=== PATIENT | male | born 1975 | race Caucasian/White ===

== ENCOUNTER 2020-07-25 14:08 | Emergency (ER) | payer MEDICAID ==
--- NOTE | 2020-07-25 14:34 | XRAY Report ---
PROCEDURE: Chest 2 View X-Ray INDICATIONS: cough TECHNIQUE: 2 view(s) of the chest. COMPARISON: None. FINDINGS: Surgical changes and devices: None. Lungs and pleura: No pleural effusions or pneumothorax. Lungs are clear. Mediastinum: Mediastinal contours are normal. Heart size is normal. Bones and chest wall: No suspicious bony abnormalities. Soft tissues appear unremarkable. IMPRESSION: No acute cardiopulmonary abnormality. Reviewed by: Connor Hernandez MD on 07/25/2020 1:32 PM [facility] Approved by: Connor Hernandez MD on 07/25/2020 1:32 PM [facility] Station ID: [id number]
[2020-07-25] MEDS ORDERED: ALBUTEROL 1 PUFF INH STA (15:10)
[2020-07-25] MEDS ORDERED: ASPIRIN 325 MG TABLET PO STA (15:13)
--- NOTE | 2020-07-25 15:24 | ED Physician Documentation ---
History of Present Illness - Stated complaint Stated Complaint: SOA/COUGH - Chief complaint Chief Complaint: Resp - History obtained from History obtained from: Patient - Additonal information Additional information: 44-year-old male presents the emergency department for concerns that he may have pneumonia. He reports that for the last 2 weeks he has had a productive cough with shortness of air. He is a tobacco user. He reports that twice between June 04 and July 05 he was treated for pneumonia. He was staying as an inpatient and [place] for substance abuse, cocaine and methamphetamine use. He was discharged on 05 July. While in rehab he did develop diarrhea and was diagnosed with C. difficile. He is currently completing a 21-day course of oral vancomycin and reports that the diarrhea has fully resolved. He states that unless he takes Mucinex the cough is persistent. He has subjective fevers. Denies chest pain. No abdominal pain nausea or vomiting. He is unsure the name of the antibiotics he took between May and June. He reports a history of previous traumatic brain injury and poor memory recall. Past medical history: Traumatic brain injury, migraines, hepatitis C, insomnia, substance abuse Social: Active tobaccoism. History of methamphetamine and cocaine abuse. No use for 6 weeks Meds: Imitrex, trazodone, propranolol, oral vancomycin Review of Systems Constitutional: reports: Myalgias Eyes: reports: Reviewed and negative Ears: reports: Reviewed and negative Nose: reports: Congestion Cardiac: reports: Chest pain / pressure Respiratory: reports: Dyspnea, Cough. denies: Hemoptysis, Wheezing GI: reports: Diarrhea (resolving (recent c-diff dx)) : reports: Reviewed and negative Skin: reports: Reviewed and negative Musculoskeletal: reports: Reviewed and negative PD PAST MEDICAL HISTORY - Present Medications Home Medications: Ambulatory Orders Medication Instructions Recorded Confirmed Albuterol Sulf [Ventolin Hfa 1 - 2 puffs INH Q4HR PRN #1 inhaler 07/25/20 Inhaler] Guaifenesin/Pseudoephedrne HCl 1 each PO BID #20 tab.er.12h 07/25/20 [Mucinex D ER 1,200-120 mg Tab] Propranolol HCl 10 mg PO DAILY 07/25/20 07/25/20 SUMAtriptan [Imitrex] 0 mg DAILY 07/25/20 07/25/20 Vancomycin [Vancocin] 0 mg DAILY 07/25/20 07/25/20 traZODone [Desyrel] 50 mg QPM 07/25/20 07/25/20 - Allergies Allergies/Adverse Reactions: Allergies Allergy/AdvReac Type Severity Reaction Status Date / Time benztropine [From Cogentin] Allergy Anxiety Verified 07/25/20 14:13 PD ED PE EXPANDED - General General: Alert, No acute distress, Well developed/nourished - Neck Neck: Supple w/out meningeal sx, No tenderness. No: Adenopathy - Cardiac Cardiac: Regular Rate, Regular Rhythm, Radial strong equal, Pedal strong equal, Cap refill < 2 sec. No: Murmur Present - Respiratory Respiratory: Clear to ausultation cody. No: Distress, Labored - Abdomen Abdomen: Normal Bowel sounds. No: Tender to palpation - Extremities Extremities: Normal. No: Deformity, Tenderness - Neuro Neuro: Alert and Oriented X 3, CNII-XII intact - GCS Eye Opening: Spontaneous Motor: Obeys Commands Verbal: Oriented Total: 15 Results - Vitals Vitals: Vital Signs - 24 hr 07/25/20 07/25/20 14:13 15:45 Temperature 36.6 C Heart Rate 82 75 Respiratory 16 22 Rate Blood Pressure 134/79 H O2 Saturation 97 Oxygen O2 Source Room air - Labs Labs: Laboratory Tests 07/25/20 07/25/20 15:36 15:36 WBC 6.7 RBC 4.50 L Hgb 12.5 L Hct 39.3 L MCV 87.3 MCH 27.8 MCHC 31.8 L RDW 13.4 Plt Count 206 MPV 11.3 Neut # (Auto) 4.1 Lymph # (Auto) 1.7 [place] # (Auto) 0.5 Eos # (Auto) 0.2 Baso # (Auto) 0.0 Absolute Nucleated RBC 0.00 Nucleated RBC % 0.0 Sodium 141 Potassium 3.8 Chloride 102 Carbon Dioxide 27 Anion Gap 12.0 BUN 16 Creatinine 0.8 Estimated GFR (MDRD) 105 Glucose 88 Calcium 9.1 Total Bilirubin 0.5 AST 20 ALT 21 Alkaline Phosphatase 82 Total Protein 7.8 Albumin 3.9 Globulin 3.9 Albumin/Globulin Ratio 1.0 Lipase 30 - Rads (name of study) CXR Radiology: Final report received (No acute cardiopulmonary abnormality) PD MEDICAL DECISION MAKING - ED course Complexity details: reviewed results, re-evaluated patient, considered differential, d/w patient ED course: 44-year-old male who has a history of hypertension and substance abuse recently out of treatment and recent diagnosis of pneumonia 2 months ago presents to the emergency department with 2 weeks of cough and congestion. He has subjective fevers. He was treated for pneumonia just as he was going into rehab for methamphetamine abuse. While in rehab he unfortunately developed C. difficile infection and is completing a 21-day course of oral vancomycin. Here on presentation he appears very well and has unremarkable cardiopulmonary excursion. His saturations on room air are 98%. Two-view chest x-ray shows no acute focal opacities. His blood count shows no leukocytosis. He was seen by respiratory therapy and did have albuterol MDI which patient reports improved his cough. COVID 19 screening is pending Given lack of fevers leukocytosis or findings on chest x-ray I will defer antibiotics at this time. I have encouraged him to fill the prescription for the albuterol MDI. I will also write a prescription for Mucinex. I have also encouraged him to establish with a primary care provider [place] as he will be staying here for the duration. Emergent and worrisome return precautions discussed Departure - Departure Disposition: 01 Home, Self Care Clinical Impression: Cough Condition: Stable Record reviewed to determine appropriate education?: Yes Instructions: ED Bronchitis Asthmatic Ch Follow-Up: [facility] [Provider Group] Prescriptions: Albuterol Sulf [Ventolin Hfa Inhaler] 1 - 2 puffs INH Q4HR PRN #1 inhaler PRN Reason: Shortness Of Air/Wheezing Guaifenesin/Pseudoephedrne HCl [Mucinex D ER 1,200-120 mg Tab] 1 each PO BID #20 tab.er.12h Comments: Donavan hansen were seen today in the emergency department for cough. As we discussed the chest x-ray does not show any findings of pneumonia. Your vital signs here are normal. Your blood count does not show an elevated white count. At this time I do not feel you would benefit from any further doses of antibiotics. It is likely that you have a virus causing your cough and congestion. I have written a prescription for the Mucinex as well as some albuterol. If your cough is not improving after 7 to 10 days, you have fevers higher than 102, you are short of breath or develop chest pain please return to the ER for a second look. It is important that you schedule [place] I have given you a reference to [facility]. In the long-term you can be evaluated and treated for your hepatitis C. You have a Covid test pending. You need to self quarantine until the result is done and negative. Do not leave your house. Do not get near anybody. The results should be done in 48 to 72 hours. We will call with a positive result, the fastest way to get a negative result for confirmation though is to go to the hospital website at [email or web address], click on the my [facility] tab and sign up for the patient portal. If any friends or family get sick and would like to have a Covid test done, but do not have signs or symptoms that would necessitate being hospitalized, we encourage testing through our coronavirus swabbing station, call [phone] to schedule an appointment.
[2020-07-25 15:53] LABS: BASOPHILS % (AUTO) 0.6 %; EOSINOPHILS # (AUTO) 0.2 10^3/uL (0.0-0.7); EOSINOPHILS % (AUTO) 3.6 %; HGB - HEMOGLOBIN 12.5 g/dL (14.0-18.0); LYMPHOCYTES # (AUTO) 1.7 10^3/uL (1.5-3.5); LYMPHOCYTES % (AUTO) 25.9 %; MEAN CORPUSCULAR HEMOGLOBIN 27.8 pg (27.0-31.0); MEAN CORPUSCULAR HGB CONC 31.8 g/dL (32.0-36.0); MEAN CORPUSCULAR VOLUME 87.3 fL (80.0-94.0); MEAN PLATELET VOLUME 11.3 fL (7.4-11.4); MONOCYTES # (AUTO) 0.5 10^3/uL (0.0-1.0); NEUTROPHILS # (AUTO) 4.1 10^3/uL (1.5-6.6); NEUTROPHILS % (AUTO) 61.6 %; PLT - PLATELET COUNT 206 10^3/uL (130-450); RED CELL DISTRIBUTION WIDTH 13.4 % (12.0-15.0); WHITE BLOOD COUNT 6.7 x10^3/uL (4.8-10.8)
[2020-07-25 16:10] LABS: ALBUMIN 3.9 g/dL (3.2-5.5); BILIRUBIN,TOTAL 0.5 mg/dL (0.2-1.0); CALCIUM 9.1 mg/dL (8.5-10.3); CREATININE 0.8 mg/dL (0.6-1.2); TOTAL PROTEIN 7.8 g/dL (6.7-8.2)
[2020-07-25 16:39] VITALS: BP 160/76
== END 2020-07-25 16:47 | disposition home or self-care (01) ==
LOC: ED 14:08
DX: R05 Cough (principal); R09.81 Nasal congestion; Z20.822 Contact with and (suspected) exposure to COVID-19; Z87.01 Personal history of pneumonia (recurrent); F17.200 Nicotine dependence, unspecified, uncomplicated; B19.20 Unspecified viral hepatitis C without hepatic coma; I10 Essential (primary) hypertension
CPT/HCPCS: 80053; 83690; 84484; 85025; 94640; 94664; 99284

== ENCOUNTER 2020-11-20 17:26 | Emergency (ER) | payer MEDICAID ==
[2020-11-20 17:32] VITALS: BP 123/81
--- NOTE | 2020-11-20 18:03 | ED Physician Documentation ---
PD HPI UPPER EXT INJURY - Stated complaint Stated Complaint: FINGER LAC - Chief complaint Chief Complaint: Laceration - History obtained from History obtained from: Patient - History of Present Illness Location: Left, Finger (index) Type of injury: Laceration Where injury occurred: Home Timing - onset: How many minutes ago (45) Pain level max: 2 Pain level now: 1 Improved by: Rest Worsened by: Moving, Palpating Contributing factors: No: Anticoagulated, Prior ortho surgery - Additonal information Additional information: Patient is a 45-year-old male who presents to the emergency department with a left index finger laceration. This occurred at home. About 45 minutes prior to arrival. Tetanus is up-to-date. Patient is right-handed. Review of Systems Constitutional: denies: Fever, Chills Respiratory: denies: Cough Skin: denies: Rash Neurologic: denies: Headache PD PAST MEDICAL HISTORY - Past Medical History Respiratory: Pneumonia Neuro: Head injury, Migraines, Seizure disorder GI: Other - Past Surgical History Past Surgical History: Yes General: Bowel surgery, Other Ortho: Arthroscopic surgery - Present Medications Home Medications: Ambulatory Orders Medication Instructions Recorded Confirmed Propranolol HCl 40 mg PO BID 07/25/20 11/20/20 SUMAtriptan [Imitrex] 0 mg DAILY 07/25/20 07/25/20 traZODone [Desyrel] 100 mg PO QPM 07/25/20 11/20/20 - Allergies Allergies/Adverse Reactions: Allergies Allergy/AdvReac Type Severity Reaction Status Date / Time benztropine [From Cogentin] Allergy Anxiety Verified 11/20/20 17:29 - Social History Does the pt smoke?: Yes Smoking Status: Current every day smoker Does the pt drink ETOH?: No PD ED PE NORMAL - Vitals Vital signs reviewed: Yes - General General: Alert and oriented X 3, No acute distress - Derm Derm: Warm and dry - Neuro Neuro: Alert and oriented X 3 - Psych Psych: Normal mood, Normal affect PD ED PE EXPANDED - Extremities SHAHRZAD UE/Hands Visual: 1 - laceration (0.2cm superficial flap laceration. NVI. No bleeding. no nail injury) Results - Vitals Vitals: Vital Signs - 24 hr 11/20/20 17:30 Temperature 36.7 C Heart Rate 86 Respiratory 18 Rate Blood Pressure 123/81 H O2 Saturation 98 Oxygen O2 Source Room air Procedures - Laceration (location) L index finger Length in cm: 0.2 Wound type: Curved, Flap, Superficial Neurovascular status: Sensory intact, Motor intact, Vascular intact Wound preparation: Chlorhexadine, Irrigated copiously NS Skin layer closure: Dermabond Other: Patient tolerated well, No complications, Neurovascular intact PD MEDICAL DECISION MAKING - ED course Complexity details: considered differential, d/w patient ED course: Patient with a small laceration to the left index finger. No active bleeding. Small flap. Dermabond was used to readhere it to the finger. Tetanus up-to- date. Patient counseled regarding signs and symptoms for which I believe and urgent re-evaluation would be necessary. Patient with good understanding of and agreement to plan and is comfortable going home at this time This document was made in part using voice recognition software. While efforts are made to proofread this document, sound alike and grammatical errors may occur. Departure - Departure Disposition: 01 Home, Self Care Clinical Impression: Finger laceration Qualifiers: Encounter type: initial encounter Finger: index finger Damage to nail status: without damage Foreign body presence: without foreign body Laterality: left Qualified Code(s): S61.211A - Laceration without foreign body of left index finger without damage to nail, initial encounter Condition: Good Instructions: ED Laceration Ext Skin Glue Follow-Up: GAIL NEVAREZ ARNP [Primary Care Provider] - As Needed Comments: Follow-up with your doctor as needed for further care. The glue will dissolve on its own in a few days. Keep the wound clean. Do not apply ointment as this may dissolve the glue. Return if you notice redness, swelling or drainage from the wound. Discharge Date/Time: 11/20/20 18:29
== END 2020-11-20 18:29 | disposition home or self-care (01) ==
LOC: ED 17:26
DX: S61.211A Laceration without foreign body of left index finger without damage to nail, initial encounter (principal); F17.200 Nicotine dependence, unspecified, uncomplicated; W26.0XXA Contact with knife, initial encounter; Y92.009 Unspecified place in unspecified non-institutional (private) residence as the place of occurrence of the external cause
CPT/HCPCS: 12001; 99282